=== PATIENT | male | born 1955 | race Two or more races ===

== ENCOUNTER 2024-08-22 04:31 | Emergency (ER) | payer MEDICARE, MEDICAID, SELFPAY ==
[2024-08-22 04:32] VITALS: BMI 24.7
[2024-08-22 04:50] VITALS: PULSE 77; RESP 22; TEMP 37; O2SAT 95
--- NOTE | 2024-08-22 04:56 | XR_ITS ---
Examination: CT abdomen and pelvis without contrast. Coronal 3-D reconstructions. Sagittal 2-D reconstructions. Date and time of exam:August 22, 2024 0555 hrs. Comparison November 30, 2017 Indications: Abdominal pain difficulty urinating today CTDI: vol (mGy): 5.42 DLP: (mGycm): 323 Technique: Axial images of the abdomen have been obtained, 3 mm slice thickness Intravenous contrast material has not been administered. Low dose protocols were performed. One or more of the following dose reduction techniques were used; automated exposure control, adjustment of the mA and/or KV according to patient size, use of iterative reconstruction technique. Findings: Mild enlargement cardiac contour No focal liver or splenic lesions No gallstones No pancreatic or adrenal mass Moderate bilateral renal parenchymal scar formation with bilateral renal cysts Minimal hydronephrosis Aorta normal size No bowel obstruction Normal appendix Urinary bladder is contracted around a Spicer catheter Significant prostatomegaly transverse dimension 5.5 cm Impression: Significant prostatomegaly, transverse dimension 5.5 cm Moderate bilateral renal parenchymal scar formation with minimal hydronephrosis, likely secondary to prostatomegaly Normal appendix Urinary bladder contracted around a Spicer catheter
--- NOTE | 2024-08-22 04:57 | PD.EDRME ---
Rapid Medical Screening Exam RME Arrival date/time: 08/22/24 04:31 69-year-old male presents emergency department complaining of acute urinary retention and lower abdominal pain. Chief Complaint: Abdominal Pain Time Seen by Provider: 08/22/24 04:50 Vital signs: Vital Signs Temperature 98.6 F 08/22/24 04:50 Pulse Rate 77 08/22/24 04:50 Respiratory Rate 22 H 08/22/24 04:50 Pulse Oximetry (%) 95 08/22/24 04:50 Oxygen Delivery Method Room Air 08/22/24 04:50 Vital signs reviewed by provider: Yes
[2024-08-22 05:29] LABS: Basophils # (Auto) 0.1 Thou/mm3 (0.0-0.2); Basophils % (Auto) 1 % (0-2.5); Eosinophils # (Auto) 0.8 Thou/mm3 (0.0-0.5); Eosinophils % (Auto) 11 % (0-10); Hemoglobin 13.3 g/dL (13.5-16.0); Immature Granulocytes % (Auto) 0 % (0-0); Immature Granulocytes Auto 0.02 Thou/mm3 (0.00-0.00); Lymphocytes # (Auto) 2.1 Thou/mm3 (1.0-4.8); Lymphocytes % (Auto) 32 % (10-50); Mean Corpuscular HGB Conc 33.3 g/dl (31.0-37.0); Mean Corpuscular Hemoglobin 30.3 pg (25.0-35.0); Mean Corpuscular Volume 91 fL (80-100); Monocytes # (Auto) 0.7 Thou/mm3 (0.0-0.8); Monocytes % (Auto) 10 % (0-12); Neutrophils # (Auto) 3.1 Thou/mm3 (1.8-7.7); Neutrophils % (Auto) 46 % (37-80); Nucleated Red Blood Cell % 0 /100 WBC (0); Platelet Count 194 Thou/mm3 (140-440); RDW Standard Deviation 42.2 fL (35.1-43.9); Red Blood Count 4.39 Miln/mm3 (4.50-5.90); White Blood Count 6.8 Thou/mm3 (3.8-10.6)
[2024-08-22 05:46] LABS: Alanine Aminotransferase 11 U/L (10-49); Albumin, Serum 5.1 gm/dL (3.4-4.8); Albumin/Globulin Ratio 1.6 (1.2-2.2); Alkaline Phosphatase 99 U/L (46-116); Anion Gap 8 (7-16); Aspartate Amino Transferase 24 U/L (0-34); BUN/Creatinine Ratio 9 Ratio (12-20); Bilirubin,Total 0.7 mg/dL (0.3-1.2); Blood Urea Nitrogen 17 mg/dL (9-23); Calcium 9.7 mg/dL (8.3-10.6); Calcium (Corrected) 9.7 mg/dL (8.5-10.1); Carbon Dioxide 26.6 mMol/L (20.0-31.0); Chloride 104 mMol/L (98-107); Creatinine (Component) 1.8 mg/dL (0.6-1.3); Estimated Creatinine Clearance 31.2 mL/min (>60); Globulin 3.1 gm/dL (2.3-3.5); Glucose 94 mg/dL (74-106); Lipase 65 U/L (12-53); Osmolality,Calculated 279 (275-295); Potassium 3.9 mMol/L (3.4-5.1); Sodium 139 mMol/L (136-145); Total Protein 8.2 gm/dL (5.7-8.2); eGFR 40 See Note
[2024-08-22 06:06] LABS: Collection Type, Urine Clean Catch; Squamous Epithelial Cell,Urine 0 /hpf (0-5)
[2024-08-22 06:25] LABS: Bilirubin,Urine Negative (Negative); Blood,Urine Negative (Negative); Clarity,Urine Clear (Clear/Hazy); Color,Urine Colorless (Lt Yel-Yel); Culture Indicated,Urine Not Indicated; Glucose, Urine Negative (Negative); Ketones,Urine Negative (Negative); Leukocyte Esterase,Urine Negative (Negative); Nitrite,Urine Negative (Negative); Protein,Urine Negative (Neg - Trace); RBC,Urine 1 /hpf (0-3); Specific Gravity,Urine 1.006 (1.001-1.035); Urobilinogen,Urine Negative mg/dL (0.0-1.0); WBC,Urine 1 /hpf (0-5)
--- NOTE | 2024-08-22 06:26 | PRELIM_ITS ---
CT scan of the abdomen and pelvis without intravenous contrast (axial sections with sagittal and bryson nal reformats). August 22, 2024 at 0555 hoursClinical History: Acute urinary retention Comparison: No prior study is available for comparison. Findings:Bibasilar dependent atelectasis is present. Biba silar nodules are seen measuring up to 5 mm (axial images 10, 21, 26/286). Small hypodense lesions ar e noted in both kidneys, suggesting of cysts. There are a few hyperdense lesions in the left kidney, suggesting of complex cyst. No evidence of renal/ureteric calculus or hydroureteronephrosis. There is bilateral periureteric/perinephric fat stranding, nonspecific. The liver, gallbladder, pancreas, s pleen and adrenals are unremarkable on this noncontrast study.No evidence of bowel obstruction. The a ppendix is within normal limits (axial image 164/286). There is no mesenteric or retroperitoneal maria r opathy.The urinary bladder is incompletely distended at the time of the examination, contains Spicer c atheter. The prostate is moderately enlarged indenting the urinary bladder base. There is no free flu id or free air. A small fat-containing umbilical hernia is present. Degenerative changes are identifi ed in the spine. Impression:1. No evidence of acute intra-abdominal or pelvic pathology.2. Moderately enlarged prostate indenting the urinary bladder base. Recommend clinical correlation. 3. Bibasilar n odules measuring up to 5 mm. Recommend further evaluation with chest CT.4. Other findings as describe d above. Report Electronically Signed By: Lynn Taylor 08/22/2024 6:25:46 AM [EST]
[2024-08-22 06:34] VITALS: BP 137/78; PULSE 59; RESP 14; TEMP 36.6; O2SAT 98
[2024-08-22 08:46] VITALS: BP 131/66; PULSE 76; RESP 23; TEMP 36.4; O2SAT 97
[2024-08-22 12:38] VITALS: BP 136/81; PULSE 62; RESP 22; TEMP 36.3; O2SAT 99
--- NOTE | 2024-08-22 12:38 | EDNOTE_ITS ---
ED Abdominal Pain RME/HPI General Chief Complaint: Abdominal Pain Stated complaint: ABD PAIN /CONSTIPATION/ UNABLE TO URINATE Time seen by provider: 08/22/24 04:50 Arrival date/time: 08/22/24 04:31 RME / HPI RME / HPI narrative: 08/22/24 04:31 69-year-old male presents emergency department complaining of acute urinary retention and lower abdominal pain. Patient presented to emergency department, accompanied by his for having co nstipation but bowel movement was yesterday small amount. He also complaining of difficulty urinating. No fever. No vomiting. No diarrhea. No bleeding. No smoking. No alcohol. No drug. Past medical history is chronic kidney insufficiency. Related Data Home Medications ?Medication ?Instructions ?Recorded ?Confirmed clopidogrel 75 mg tablet 75 mg PO QDAY 30 days ##0 05/09/16 11/30/17 naproxen 500 mg tablet 1 tab PO QDAY 30 days ##0 06/04/17 11/30/17 albuterol sulfate 90 mcg/actuation 2 puff inhalation Q6H 11/30/17 11/30/17 aerosol inhaler Previous Rx's ?Medication ?Instructions ?Recorded tramadol 50 mg tablet (Ultram) 50 mg PO Q6H PRN pain #10 tabs 11/30/17 magnesium hydroxide 400 mg/5 mL 20 ml PO TID PRN constipation #355 08/22/24 oral suspension (Milk of Magnesia) mL Allergies Allergy/AdvReac Type Severity Reaction Status Date / Time No Known Allergies Allergy Verified 11/30/17 10:35 Review of Systems Review of Systems Narrative Review of Systems: REVIEW OF SYSTEM: GEN:? negative except mentioned in HPI HEENT:? negative except mentioned in HPI NECK:? negative except mentioned in HPI PULM:? negative except mentioned in HPI CARD:? negative except mentioned in HPI GI:? negative except mentioned in HPI MUSCULO/SKET: negative except mentioned in HPI SKIN:? negative except mentioned in HPI NEURO:? negative except mentioned in HPI PSYCH:? negative except mentioned in HPI Past Medical History Past Medical History CARDIAC: Positive Cardiac Disorders; Negative Congestive Heart Failure RESPIRATORY: Positive Chronic Obstructive Pulmonary Disease (COPD) and Asthma GENITOURINARY: Negative Renal Disease ENDOCRINE: Negative Diabetes Mellitus Type 1 or Diabetes Mellitus Type 2 Surgical History SURGICAL: Positive Cardiac Catheterization Social History SMOKING STATUS: Never smoker ED Exam Narrative Physical exam: Aaox4. No acute distress O2 saturation is normal Heent:? perra. Eomi. No icteric. Neck: full rom.? No mass.? No jvd.? No lymphadenopathy Lungs:? clear, full, equal Heart:? s1s2.? Rrr.? No murmur, gallop or rub. Abd: soft, nondistended, nontender, no mass, no rebound or guarding, no flank tender.? No incarcerated? hernia. This examination was done after the Spicer was inserted and we got approximately 1000 mL of urine. Ext:? full rom.? No deformity.? Normal csm. Neuro:?? intact cn2 to 12.? No facial droop.? No slurred speech.? No focal deficit.? Moves all 4ext Skin:? no rash.? No cellulitis.? No lesion.? No laceration Psychiatrical: no suicidal.? No homicidal.? No delusion.? No hallucinating Course Quality Measures none Orders Category Date Time Status Spicer to [place] Routine Care 08/22/24 04:[address] abdomen pelvis wo con Stat Exams 08/22/24 04:56 Completed CBC Stat Lab 08/22/24 05:07 Completed CMP [Comprehensive Metabolic Panel] Stat Lab 08/22/24 05:07 Completed Lipase Stat Lab 08/22/24 05:07 Completed Urinalysis, C/S if Indicated Stat Lab 08/22/24 05:05 Completed Vital Signs Vital signs: Vital Signs Temperature 98.6 F 08/22/24 04:50 Pulse Rate 77 08/22/24 04:50 Respiratory Rate 22 H 08/22/24 04:50 Pulse Oximetry (%) 95 08/22/24 04:50 Oxygen Delivery Method Room Air 08/22/24 04:50 Abdominal Pain MDM MDM Narrative MDM Narrative:: CBC unremarkable. CMP remarkable for a creatinine of 1.8 consistent with chronic kidney insufficiency. UA is negative. CT abdomen and pelvic was done and result was as follow. [facility] [address] [place] [address] [facility] Report Signed Patient: CASSANDRA NAVARRO Record#: [id number] Birthdate: 1955 Age/Sex: 69 / M Location: [facility] Attending Dr: Ordering Physician: Phuong Singh (RECOVERY COORDINATOR),hCristopher BAH Date of Service: 08/22/24 Procedure(s): CT abdomen pelvis wo con Accession Number(s): [id number] cc: Yemi Betts MD; Juan F Steele MD; Phuong Singh (RECOVERY COORDINATOR),Christopher BAH~ Examination: CT abdomen and pelvis without contrast. Coronal 3-D reconstructions. Sagittal 2-D reconstructions. Date and time of exam:August 22, 2024 0555 hrs. Comparison November 30, 2017 Indications: Abdominal pain difficulty urinating today CTDI: vol (mGy): 5.42 DLP: (mGycm): 323 Technique: Axial images of the abdomen have been obtained, 3 mm slice thickness Intravenous contrast material has not been administered. Low dose protocols were performed. One or more of the following dose reduction techniques were used; automated exposure control, adjustment of the mA and/or KV according to patient size, use of iterative reconstruction technique. Findings: Mild enlargement cardiac contour No focal liver or splenic lesions No gallstones No pancreatic or adrenal mass Moderate bilateral renal parenchymal scar formation with bilateral renal cysts Minimal hydronephrosis Aorta normal size No bowel obstruction Normal appendix Urinary bladder is contracted around a Spicer catheter Significant prostatomegaly transverse dimension 5.5 cm Impression: Significant prostatomegaly, transverse dimension 5.5 cm Moderate bilateral renal parenchymal scar formation with minimal hydronephrosis, likely secondary to prostatomegaly Normal appendix Urinary bladder contracted around a Spicer catheter Dictated By: Juan F Steele MD Signed By: <Electronically signed by Juan F Steele MD in OV> 08/22/24701 DD/ 9 TD/TT: 08/22/24699 CT abdomen and pelvic was reviewed by and interpreted by me as follow: Some constipation in the right ascending colon. But no sign of bowel obstruction. Spicer is inserted in the bladder is reduced in size. No free air. No free fluid. No gallstones. 12:41 PM, the patient is ready to go home. We will give the patient a leg bag for the urine. He is instructed to empty the leg bag when full and follow-up with his PMD in 3 days for recheck further care and Spicer removal. Patient data External records reviewed:: [facility] previous records Clinical information provided by:: patient and other (specify) (Lead Infrastructure Architect) Social determinants that could affect healthcare access:: none Patient has the following chronic illnesses:: Questionable prostate hypertrophy How is presenting disease/condition affected by chronic disease/condition?: exacerbated by Evaluation data The following diagnostics were reviewed and interpreted by me:: lab results and radiology exam(s) Lab and/or radiology exams considered but not ordered:: None Interpretation Summary: See MDM Medications / Prescriptions Medications or Prescriptions considered but not ordered:: None Medication administrations:: None Consultations Consultation(s) initiated? (list below): No Diagnosis Differential diagnosis abdominal pain: abdominal pain, calculus of kidney, constipation, diverticulitis and small bowel obstruction Most likely diagnosis given after review of the tests above:: Urinary retention constipation Admission Indicated Admission indicated?: not indicated Admission Request Was there a request for admission?: No Disposition Plan Disposition Plan: Discharge Discharge Attestation Discharge Attestation: The patient and all family members were given an opportunity to ask questions and understood the discharge instructions. Discharge instructions specifically effects, indications for sooner follow up or return to the emergency department, and the expected course of current diagnosis. Patient condition: Stable Discharge Plan Plan Patient Disposition: HOME (Self Care) Disposition Comment: Stable for [place] home Prescriptions/Referrals Prescriptions/Med Rec: New magnesium hydroxide [Milk of Magnesia] 400 mg/5 mL suspension 20 ml PO TID PRN (Reason: constipation) Qty: 355 0RF No Action clopidogrel 75 MG tablet 75 mg PO QDAY 30 Days Qty: 0 naproxen 500 MG tablet 1 tab PO QDAY 30 Days Qty: 0 albuterol sulfate 90 mcg/actuation Hfa Aerosol Inhaler 2 puff INHALATION Q6H tramadol [Ultram] 50 mg tablet 50 mg PO Q6H PRN (Reason: pain) Qty: 10 0RF Referrals: Yemi Betts MD [Primary Care Provider] - In 1 week Problem List Clinical Impression: Acute urinary retention, Constipation Patient/Caregiver Discharge Instructions Education Materials: ED Constipation (Adult), ED Urinary Retention, Male Additional Instructions: Medication as prescribed for constipation. Empty the leg bag when full of urine. Follow-up with your medical doctor in 3 days for recheck and further care and Spicer removal. Also, please ask your doctor to refer you to see a urologist to rule out prostate problem Print Language: [place]er Stand Alone Forms: [facility] Info., Patient Portal Info Letter
== END 2024-08-22 13:00 | disposition home or self-care (01) ==
PROVIDERS: Emergency Provider Emergency Medicine; PCP Family Medicine; Referring Provider Emergency Medicine
DX: N40.1 Benign prostatic hyperplasia with lower urinary tract symptoms (principal); R33.8 Other retention of urine; K59.00 Constipation, unspecified; N13.30 Unspecified hydronephrosis; N28.89 Other specified disorders of kidney and ureter
CPT/HCPCS: 51702; 36415; 74176; 80053; 81001; 83690; 85025; 99284

== ENCOUNTER 2025-02-20 10:35 | Emergency (ER) | payer MEDICARE, MEDICAID, SELFPAY ==
[2025-02-20 10:46] VITALS: BP 136/88; PULSE 75; RESP 18; TEMP 36.9; O2SAT 97; BMI 23.6
--- NOTE | 2025-02-20 10:55 | PD.EDEYE ---
ED Eye Problem RME/HPI General Chief complaint: Eye Problems Stated complaint: STUNG BY MOSQUITO L) EYE; TODAY IT IS WORSE Time Seen by Provider: 02/20/25 10:51 Arrival date/time: 02/20/25 10:35 Limitations: no limitations RME / HPI RME / HPI Narrative: States he was bitten by a mosquitio about 3 days ago a his left lower eyelid. Seen in clinic and started on bactrim. Here today with worsening swelling. No vision changes or drainage. Wheres glasses, no contacts. He has no other acute complaints. Related Data Home Medications ?Medication ?Instructions ?Recorded ?Confirmed clopidogrel 75 mg tablet 75 mg PO QDAY 30 days ##0 05/09/16 11/30/17 naproxen 500 mg tablet 1 tab PO QDAY 30 days ##0 06/04/17 11/30/17 albuterol sulfate 90 mcg/actuation 2 puff inhalation Q6H 11/30/17 11/30/17 aerosol inhaler Previous Rx's ?Medication ?Instructions ?Recorded tramadol 50 mg tablet (Ultram) 50 mg PO Q6H PRN pain #10 tabs 11/30/17 magnesium hydroxide 400 mg/5 mL 20 ml PO TID PRN constipation #355 08/22/24 oral suspension (Milk of Magnesia) mL hydroxyzine HCl 25 mg tablet 25 mg PO BID #14 tabs 02/20/25 Allergies Allergy/AdvReac Type Severity Reaction Status Date / Time No Known Allergies Allergy Verified 02/20/25 10:41 Review of Systems Review of Systems Systems Reviewed: All systems reviewed, normal except as documented ED Exam General Limitations: Present no limitations General appearance: Present alert and in no apparent distress Head Head exam: Present atraumatic Eye Eye exam: Present normal appearance, PERRL, EOMI, periorbital swelling and other (No uptake of fluorescein or foreign body appreciated. ) ENT ENT exam: Present normal exam, normal oropharynx and mucous membranes moist Neck Neck exam: Present normal inspection, full ROM and trachea midline Chest Chest inspection: Present normal inspection and symmetric chest wall rise Respiratory Respiratory exam: Present normal lung sounds bilaterally Cardiovascular Cardiovascular exam: Present regular rate, normal rhythm and normal heart sounds Abdominal Exam Abdominal exam: Present soft and normal bowel sounds Extremities Exam Extremities exam: Present normal inspection and full ROM Back Exam Back exam: Present normal inspection and full ROM Neurological Exam Neurological exam: Present alert, oriented X3 and CN II-XII intact Psychiatric Psychiatric exam: Present normal affect and normal mood Skin Skin exam: Present warm, dry, intact and normal color Course Quality Measures none Orders Category Date Time Status Fluorescein-Benoxin 0.3%-0.4% Med 02/20/25 10:55 Discontinued 2 drop BOTH EYES X1 ONE Proparacaine Op [place] 0.5% [Alcaine Op [place] 0.5%] Med 02/20/25 10:55 Discontinued See Dose Instructions LEFT EYE X1 ONE Vital Signs Vital signs: Vital Signs Temperature 98.5 F 02/20/25 10:46 Pulse Rate 75 02/20/25 10:46 Respiratory Rate 18 02/20/25 10:46 Blood Pressure 136/88 H 02/20/25 10:46 Pulse Oximetry (%) 97 02/20/25 10:46 Oxygen Delivery Method Room Air 02/20/25 10:46 Eye Patient data External records reviewed:: [facility] previous records Clinical information provided by:: patient Social determinants that could affect healthcare access:: none Patient has the following chronic illnesses:: asthma How is presenting disease/condition affected by chronic disease/condition?: uneffected by Evaluation data The following diagnostics were reviewed and interpreted by me:: other (specify) (n/a) Lab and/or radiology exams considered but not ordered:: ct face Interpretation Summary: n/a Medications / Prescriptions Medications or Prescriptions considered but not ordered:: further antibiotics Medication administrations:: Medication Administration History Discontinued Medications Fluorescein Sodium/Benoxinate HCl (Fluorescein-Benoxin 0.3%-0.4% 1 Drop) 2 drop BOTH EYES X1 ONE Stop: 02/20/25 10:56 Last Admin: 02/20/25 11:03 Dose: 2 drop Documented By: RONAK Comments: USED BY PROVIDER Proparacaine HCl (Proparacaine Op [place] 0.5% 15 Ml Btl) 0 drop LEFT EYE X1 ONE Stop: 02/20/25 10:56 Last Admin: 02/20/25 11:03 Dose: 1 drop Documented By: RONAK Comments: USED BY PROVIDER see above Consultations Consultation(s) initiated? (list below): No Diagnosis Eye Problem Differential Diagnosis: other (localized reaction ) Most likely diagnosis given after review of the tests above:: local reaction Admission Indicated Admission indicated?: not indicated Admission Request Was there a request for admission?: No Disposition Plan Disposition Plan: Discharge Discharge Attestation Discharge Attestation: The patient and all family members were given an opportunity to ask questions and understood the discharge instructions. Discharge instructions specifically effects, indications for sooner follow up or return to the emergency department, and the expected course of current diagnosis. Patient condition: Stable Discharge Plan Plan Patient Disposition: HOME (Self Care) Patient condition on transfer: Stable Prescriptions/Referrals Prescriptions/Med Rec: New hydroxyzine HCl 25 mg tablet 25 mg PO BID Qty: 14 0RF No Action clopidogrel 75 MG tablet 75 mg PO QDAY 30 Days Qty: 0 naproxen 500 MG tablet 1 tab PO QDAY 30 Days Qty: 0 albuterol sulfate 90 mcg/actuation Hfa Aerosol Inhaler 2 puff INHALATION Q6H tramadol [Ultram] 50 mg tablet 50 mg PO Q6H PRN (Reason: pain) Qty: 10 0RF magnesium hydroxide [Milk of Magnesia] 400 mg/5 mL suspension 20 ml PO TID PRN (Reason: constipation) Qty: 355 0RF Problem List Clinical Impression: Insect bite of face with local reaction Patient/Caregiver Discharge Instructions Education Materials: ED Bite Mosquito ([place] CITIZEN) Additional Instructions: Continue your current antibiotics. Use the provided antihistamines for additional relief. Return here as needed for any worsening changes. Print Language: [place] Stand Alone Forms: [facility] Info., Patient Portal Info Letter
[2025-02-20] MEDS: FLUORESCEIN-BENOXIN 0.3%-0.4% 1 DROP 2 DROP BOTH EYES (11:03)
[2025-02-20] MEDS: PROPARACAINE OP SOL 0.5% 15 ML BTL LEFT EYE (11:03)
== END 2025-02-20 11:20 | disposition home or self-care (01) ==
LOC: SERX 11:23
PROVIDERS: Emergency Provider Family Medicine; PCP Family Medicine
DX: S00.86XA Insect bite (nonvenomous) of other part of head, initial encounter (principal); L08.9 Local infection of the skin and subcutaneous tissue, unspecified; W57.XXXA Bitten or stung by nonvenomous insect and other nonvenomous arthropods, initial encounter
CPT/HCPCS: 99282; Z7110; Z7610